=== PATIENT | male | born 1990 | race Caucasian/White ===

== ENCOUNTER 2019-11-15 22:34 | Emergency (ER) | payer MEDICAID ==
[~2019-11-15] VITALS: Ht 177.8 cm; Wt 76.3 kg
[2019-11-15 23:03] VITALS: BP 126/86
[2019-11-15] MEDS ORDERED: naproxen 500mg tablet PO ONE (23:40)
[2019-11-16] MEDS ORDERED: DOXYCYCLINE 100MG CAPSULE PO STA (00:59)
[2019-11-16] MEDS ORDERED: CefTRIAXone 250MG IM Kit w/LIDOcaine IM ONE (01:00)
[2019-11-16 01:07] LABS: CLARITY,URINE CLEAR (Clear); COLOR,URINE YELLOW (Yellow); GLUCOSE, URINE NEGATIVE (Neg); KETONES,URINE NEGATIVE (Neg); LEUKOCYTE ESTERASE ,URINE NEGATIVE (Neg); NITRITES, URINE NEGATIVE (Neg); OCCULT BLOOD,URINE NEGATIVE (Neg); PROTEIN,URINE NEGATIVE (Neg); UROBILINOGEN,URINE 0.2 E.U/dL (0.2-1.0)
[2019-11-16 01:10] LABS: UA COLLECTION TYPE VOIDED
[2019-11-16] MEDS ORDERED: NAPR-56 PO (01:22)
[2019-11-16] MEDS ORDERED: DOXY100C2 PO (01:22)
== END 2019-11-16 02:00 | disposition home or self-care (01) ==
LOC: ER 22:35
DX: N45.1 Epididymitis (principal); F17.200 Nicotine dependence, unspecified, uncomplicated; Z79.899 Other long term (current) drug therapy
CPT/HCPCS: 36415; 76870; 81003; 87491; 87591; 96372; 99284; J0696